=== PATIENT | male | born 1965 | race Caucasian/White ===

== ENCOUNTER → 2018-08-14 16:28 | Outpatient (CLI) | payer OTHER, SELFPAY ==
[2018-08-14 15:30] VITALS: BMI 25.2
[2018-08-14 17:32] LABS: Absolute Lymphocyte Count 1.95 X10^3/ul (0.83-4.51); Absolute Neutrophil Count 3.2 X10^3/uL (2.0-7.7); Basophil# 0.02 X10^3/uL; Basophil% 0.3 % (0-1); Eosinophil# 0.25 X10^3/uL; Eosinophils% 4.2 % (0-5); Hemoglobin 14.6 g/dl (13.0-16.5); Lymphocyte # 1.95 X10^3/ul (4.0); Lymphocyte % 32.8 % (19-41); Mean Corp Hgb Conc 34.8 g/gl (32-36); Mean Corpuscular Hgb 30.9 pg (27.0-32.0); Mean Platelet Vol. 10.2 fl (6.2-12.0); Monocyte# 0.51 X10^3/uL; Monocyte% 8.6 % (0-10); Neutrophil # 3.22 X10^3/uL (2.7-7.7); Neutrophil % 54.1 % (47-70); Platelet Count 170 K/mm3 (150-450); RBC Distribution Width CV 12.2 % (11.6-14.6); RBC Distribution Width SD 39.3 fl (35.1-43.9); Red Blood Count 4.72 M/mm3 (4.6-6.2)
[2018-08-14 17:37] LABS: POSITIVE COUNT NO; POSITIVE DIFFERENTIAL NO; POSITIVE MORPHOLOGY NO
[2018-08-14 17:41] LABS: AST(SGOT) 19 U/L (15-37); Alanine Aminotransfer ALT/SGPT 30 U/L (16-61); Albumin, Serum 3.7 g/dL (3.2-5.0); Alkaline Phosphatase 111 U/L (45-117); Bilirubin, Direct 0.31 mg/dL (0.00-0.30); Cholesterol 103 mg/dL (200); High Density Lipoprotein 33 mg/dL; Protein, Total 6.7 g/dL (6.4-8.2); Triglycerides 130 mg/dL; Very Low Density Lipoprotein 26 mg/dL (5-40)
== END ==
PROVIDERS: Family Provider Family Medicine; PCP Family Medicine; Visit Provider Physician Assistant Medical
DX: I25.10 Atherosclerotic heart disease of native coronary artery without angina pectoris (principal); I10 Essential (primary) hypertension; E78.00 Pure hypercholesterolemia, unspecified; D50.8 Other iron deficiency anemias
CPT/HCPCS: 36415; 80061; 80076; 85025

== ENCOUNTER 2019-02-08 15:40 | Observation (INO) | payer OTHER, SELFPAY ==
[2018-08-14 15:30] VITALS: BMI 25.2
[2019-02-08] VITALS (11 sets, daily range): BP systolic 136–164; BP diastolic 78–96; PULSE 66–92; RESP 14–20; TEMP 36.6–37; O2SAT 97–100; BMI 25.0; BMI 25.1
--- NOTE | 2019-02-08 15:56 | RAD_ITS ---
STUDY: X-RAY CHEST REASON FOR EXAM: Male, 53 years old. CHEST PAIN/HX OF STENTS TECHNIQUE: Portable chest. COMPARISON: 05/13/2014. FINDINGS: The lungs are clear and expanded. There is no demonstrated pleural abnormality. Normal size heart. Coronary stent is identified. Normal mediastinum and thao. Normal visualized pulmonary arteries. Normal visualized aortic arch and descending thoracic aorta. Normal visualized thoracic spine. Normal visualized ribs, clavicles, and shoulders. There is no demonstrated abnormality of the visualized soft tissue structures of the upper abdomen. RAD/Chest 1 View (Portable) IMPRESSION: No acute findings. Electronically Signed: Yaneth Church MD at 16:39 EST Tel , Service support ,
--- NOTE | 2019-02-08 15:57 | EKG12_ITS ---
Test Reason : CP Blood Pressure : / mmHG Vent. Rate : 074 BPM Atrial Rate : 074 BPM P-R Int : 146 ms QRS Dur : 086 ms QT Int : 376 ms P-R-T Axes : 040 026 050 degrees QTc Int : 417 ms Normal sinus rhythm Normal ECG Confirmed by NOEL EVANS, DEEPALI ([id number]), web editor CYNTHIA PACE ([id number]) on 02/10/2019 1:40:08 PM Referred By: Alonzo Alejo Confirmed By:DEEPALI COHEN MD
[2019-02-08 16:18] LABS: Absolute Lymphocyte Count 2.68 X10^3/uL (0.83-4.51); Absolute Neutrophil Count 3.7 X10^3/uL (2.0-7.7); Basophil# 0.05 X10^3/uL; Basophil% 0.7 % (0-1); Eosinophil# 0.15 X10^3/uL; Eosinophils% 2.1 % (0-5); Hematocrit 42.1 % (40-54); Hemoglobin 14.6 g/dL (13.0-16.5); Lymphocyte # 2.68 X10^3/ul (4.0); Lymphocyte % 37.1 % (19-41); Mean Corp Hgb Conc 34.7 g/dL (32-36); Mean Corpuscular Hgb 30.5 pg (27.0-32.0); Mean Corpuscular Volume 88.1 fL (80-94); Mean Platelet Vol. 9.8 fl (6.2-12.0); Monocyte# 0.63 X10^3/uL; Monocyte% 8.7 % (0-10); NRBC Flagged by Analyzer 0 % (0-5); Neutrophil # 3.69 X10^3/uL (2.7-7.7); Platelet Count 195 K/mm3 (150-450); RBC Distribution Width CV 12.1 % (11.6-14.6); RBC Distribution Width SD 38.7 fl (35.1-43.9); Red Blood Count 4.78 M/mm3 (4.6-6.2); White Blood Count 7.2 K/mm3 (4.4-11.0)
[2019-02-08] MEDS: Nitroglycerin (INPATIENT USE) 0.4 MG TAB.SUBL SUBLINGUAL ×3 (16:33→16:50)
[2019-02-08] MEDS: Mag Hydrox/Al Hydrox/Simeth 30 ML UDC PO (16:33)
[2019-02-08 16:41] LABS: D-Dimer Quantitative (DVT/PE) 0.39 FEU/ug/m (0.27-0.49)
[2019-02-08 17:00] LABS: ALB/GLOB Ratio 1.3 RATIO (0.9-2.4); AST(SGOT) 26 U/L (15-37); Alanine Aminotransfer ALT/SGPT 37 U/L (16-61); Albumin, Serum 3.9 g/dL (3.2-5.0); Alkaline Phosphatase 106 U/L (45-117); Anion Gap 7 (5-15); BUN 13 mg/dL (7-18); Calcium,Total 8.8 mg/dL (8.5-10.1); Chloride 106 mmol/L (98-107); Creatinine, Serum 1.18 mg/dL (0.70-1.30); EST Glomerular Filtration Rate 68 mL/min (>60); Est Glom Filt Rate - Afr Amer 82 mL/min (>60); Estimated Creatinine Clearance 79.94 ml/min; Globulin 3.1 g/dL (2.2-4.2); Glucose 158 mg/dL (74-106); Lipase 118 U/L (73-393); Sodium Level 142 mmol/L (136-145)
--- NOTE | 2019-02-08 17:36 | CT_ITS ---
STUDY: CTA CHEST REASON FOR EXAM: Male, 53 years old. DISSECTION,EPIGASTRIC PAIN -- HX:DIABETES,MS WITH CABG AND STENTS X 7,HTN,HLD RADIATION DOSAGE (If Supplied By Facility): CTDIvol = ( 12.39 ) mGy, DLP = ( 464.30 ) mGycm TECHNIQUE: The examination was performed with the intravenous administration of IV 100mL Isovue-370. Post-processing of the angiographic images was performed, with multiplanar reformation and 3D reconstruction. Individualized dose optimization techniques were used for this CT. COMPARISON: None. FINDINGS: The heart and pericardium are normal. The aorta is normal in caliber, with no aneurysm or dissection. There is no mediastinal mass or adenopathy. There is no hilar or axillary adenopathy. There is no evidence of pulmonary embolus. There is no pleural effusion. There is no pulmonary consolidation. Multiple granulomatous calcifications bilaterally. Visualized abdomen is unremarkable. There is no osseous abnormality. CT/CTA Chest W/WO Contrast IMPRESSION: 1. No pulmonary embolus or aortic dissection. 2. Old healed granulomatous disease. Electronically Signed: Yaneth Church MD at 18:25 EST Tel , Service support ,
--- NOTE | 2019-02-08 18:44 | PCM.HP.STD ---
Problem List (1) Chest pain Status: Acute (2) Iron deficiency anemia due to dietary causes Status: Chronic (3) Angina pectoris Status: Chronic (4) Hyperlipidemia Status: Chronic Qualifiers: Hyperlipidemia type: pure hypercholesterolemia Qualified Code(s): E78.00 - Pure hypercholesterolemia, unspecified; E78.0 - Pure hypercholesterolemia (5) Hypertension Status: Chronic Qualifiers: Hypertension type: essential hypertension Qualified Code(s): I10 - Essential (primary) hypertension (6) History of percutaneous transluminal coronary angioplasty Status: Chronic Comment: PTCA/IRIS to prox RCA, mid LAD & Mid D1 with IVUS to LAD & kissing balloon technique at D1 & mid LAD 07/12/09; 07/21/09 - Diag 2 & Ostium restenosed, a small dissection of LAD occurred, IRIS to Lt main to tack down dissection (7) ASHD (arteriosclerotic heart disease) Status: Chronic (8) Other [facility] (current) drug therapy Status: Chronic (9) Diabetes mellitus Status: Chronic (10) Other iron deficiency anemias Status: Chronic (11) Bilateral carotid bruits Status: Chronic History of Present Illness Date of Admission: 02/08/19 Chief Complaint: CHEST PAIN The patient is a 53 year old M with a significant history of CAD status post 7 stents placed on 3 occasions with last stent placed about 9 years ago; hypertension; hyperlipidemia; diabetes mellitus who presented to emergency department with chest pain that started several hours before admission. Associated with symptoms is diaphoresis and shortness of breath. He denied any nausea or vomiting. His pain is episodic and it has been progressively worsening. Is his pain is aggravated with walking and it improves with rest. At the emergency department the plan was to send him home if CT scan of his chest was unremarkable. However while walking to his room after a CT scan of his chest he began to have chest pain and a decision was made to admit patient. His chest pain is located across his entire chest which he described as a pressure. Also he had some burning pain at the left side of his chest. A chest pain radiates to his proximal anterior shoulder. He thinks chest pain is different from his previous episodes where he had MO as in previous episodes of MO, his chest pain radiated to his arms and to his jaws. At the emergency department patient was given GI cocktail which he thinks only made his mouth numbed without any improvement in his chest pain. Nitroglycerin given at the ED helped. Patient had his first heart attack at age 44. His brother had heart attack at 51. And his father had a heart attack at age 52. Past Medical History Past Medical History (Chronic Problems): Chronic Problems (Last Reviewed 02/08/19 @ 20:04 by Alonzo Alejo MD) Iron deficiency anemia due to dietary causes (Chronic) Angina pectoris (Chronic) Hyperlipidemia (Chronic) Hypertension (Chronic) History of percutaneous transluminal coronary angioplasty (Chronic) PTCA/IRIS to prox RCA, mid LAD & Mid D1 with IVUS to LAD & kissing balloon technique at D1 & mid LAD 07/12/09; 07/21/09 - Diag 2 & Ostium restenosed, a small dissection of LAD occurred, IRIS to Lt main to tack down dissection ASHD (arteriosclerotic heart disease) (Chronic) Other penitentiary (current) drug therapy (Chronic) Diabetes mellitus (Chronic) Other iron deficiency anemias (Chronic) Bilateral carotid bruits (Chronic) Medical History: Medical History (Last Reviewed 02/08/19 @ 20:04 by Alonzo Alejo MD) Iron deficiency anemia due to dietary causes (Chronic) D50.8 Old myocardial infarction (Resolved) I25.2 Angina pectoris (Chronic) I20.9 Hyperlipidemia (Chronic) E78.5 Hypertension (Chronic) I10 ASHD (arteriosclerotic heart disease) (Chronic) I25.10 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) Z79.899 Diabetes mellitus (Chronic) E11.9 Other iron deficiency anemias (Chronic) D50.8 Bilateral carotid bruits (Chronic) R09.89 Allergies codeine Adverse Reaction (Severe, Verified 02/08/19 15:43) Unknown penicillin G Adverse Reaction (Severe, Verified 02/08/19 15:43) Unknown Home Medications: Ambulatory Orders Medication Instructions Recorded metformin 1,000 mg tablet 1,000 mg PO BID 01/29/17 atorvastatin 80 mg tablet 80 mg PO QDAY #90 tab 08/14/18 esomeprazole magnesium 40 mg 20 mg PO DAILY cap 08/14/18 capsule,delayed release lisinopril 2.5 mg tablet 2.5 mg PO QDAY #90 tab 08/14/18 prasugrel 10 mg tablet 10 mg PO QDAY #90 tab 08/14/18 Surgical History: Surgical History (Last Reviewed 02/08/19 @ 20:04 by Alonzo Alejo MD) History of percutaneous transluminal coronary angioplasty (Chronic) Z98.61 PTCA/IRIS to prox RCA, mid LAD & Mid D1 with IVUS to LAD & kissing balloon technique at D1 & mid LAD 07/12/09; 07/21/09 - Diag 2 & Ostium restenosed, a small dissection of LAD occurred, IRIS to Lt main to tack down dissection Lives: With Family Smoking Status: Former smoker Tobacco Use: Cigarettes Review of Systems Constitutional: Denies: Chills, Fever, Weight Change HEENT: Denies: Head Aches, Sinus Congestion, Sinus Drainage Cardiovascular: Reports: Chest Pain, Chest Pressure. Denies: Palpitations Respiratory: Reports: Shortness of Breath. Denies: Cough Gastrointestinal: Denies: Abdominal Pain, Nausea, Vomiting Genitourinary: Denies: Dysuria Musculoskeletal: Reports: Shoulder Pain. Denies: Joint Pain, Joint Tenderness Skin: Denies: Rash, Wounds Neurological: Denies: Numbness, Tingling, Focal weakness Psychiatric: Denies: Anxiety, Depression, Homicidal Ideations, Suicidal Ideations Hematologic/ Lymphatic: Denies: Easy Bruising, Easy Bleeding VTE Information - Inpt Only VTE Present on Admission: No VTE Mechan Device Prophylaxis: None VTE Pharm Prophylaxis ordered?: Yes Patient Problems: Active and Suspected Problems (Last Reviewed 02/08/19 @ 20:04 by Alonzo Alejo MD) Chest pain (Acute) - Physical Exam Vitals/I&O's: Vital Signs Temp Pulse Resp BP Pulse Ox 97.8 F 77 16 159/81 H 99 02/08/19 15:45 02/08/19 18:05 02/08/19 18:05 02/08/19 18:05 02/08/19 18:05 Oxygen Delivery Method Room Air Weight: 86.2 kg Body Mass Index (BMI) 25.0 Intake and Output for Last 24 Hours 02/06/19 02/07/19 02/08/19 23:59 23:59 23:59 Intake Total 500 / 500 Balance 500 / 500 General: Alert, Oriented x3, Cooperative HEENT: Atraumatic, PERRLA, EOMI, Normocephalic Neck: Supple, Trachea Midline Lungs: Clear to auscultation, Normal air movement Cardiovascular: Regular rate, Regular Rhythm, Normal S1, Normal S2, No murmurs Abdomen: Bowel Sounds Present, Soft, Non Tender Extremities: No edema, Capillary Refill Less than 3 Seconds Skin: No rashes, No breakdown Musculoskeletal: No Tenderness to Palpation of Joints or Extremities Neurological: Cranial nerves II-XII grossly intact Psych/Mental Status: Normal Affect, Appropriate Laboratory Results 02/08/19 16:00: WBC 7.2, RBC 4.78, Hgb 14.6, Hct 42.1, MCV 88.1, MCH 30.5, MCHC 34.7, RDW Std Deviation 38.7, RDW Coeff of Andrea 12.1, Plt Count 195, MPV 9.8, Immature Gran % (Auto) 0.400, Neut % (Auto) 51.0, Lymph % (Auto) 37.1, [place] % (Auto) 8.7, Eos % (Auto) 2.1, Baso % (Auto) 0.7, Absolute Neuts (auto) 3.7, Absolute Lymphs (auto) 2.68, Nucleated RBC % 0 02/08/19 16:00: Sodium 142, Potassium 4.0, Chloride 106, Carbon Dioxide 29.0, Anion Gap 7, BUN 13, Creatinine 1.18, Estim Creat Clear Calc 79.94, Est GFR (MDRD) Af Amer 82, Est GFR (MDRD) Non-Af 68, BUN/Creatinine Ratio 11.0, Glucose 158 H, Calcium 8.8, Total Bilirubin 1.50 H, AST 26, ALT 37, Alkaline Phosphatase 106, Troponin I < 0.015, Total Protein 7.0, Albumin 3.9, Globulin 3.1, Albumin/Globulin Ratio 1.3, Lipase 118 02/08/19 16:00: D-Dimer Quant (PE/DVT) 0.39 Current Medications Nitroglycerin (Nitrostat) 0.4 mg SUBLINGUAL Q5M PRN PRN Reason: CARDIAC/CHEST PAIN Last Admin: 02/08/19 16:50 Dose: 0.4 mg Documented by: Assessment/Plan All Active Problems (Last Reviewed 02/08/19 @ 20:04 by Alonzo Alejo MD) Chest pain (Acute) Old myocardial infarction (Resolved) The patient is a 53 year old M with a significant history of CAD status post 7 stents placed on 3 occasions with last stent placed about 9 years ago; hypertension; hyperlipidemia; diabetes mellitus who presented to emergency department with chest pain that improves with rest, and nitroglycerin; and exacerbates with walking consistent with angina pectoris. Angina pectoris Place on a monitored bed at pcu CXR independently reviewed confirms no acute cardiopulmonary process. CTA chest showed no pulmonary embolism or aortic dissection. Old healed granulomatous disease. EKG independently reviewed confirms sinus rhythm ASA 81 mg p.o. daily SL NTG 0.4 mg prn as needed for chest pain We will check lipid panel. Statin: On home Lipitor 80 mg daily; continued Anti-P2Y12 Receptor antibody: On Prasugrel; continued Serial cardiac enzymes Stat EKG as needed for chest pain Treadmill Stress test if the cardiac enzymes are negative Diabetes mellitus with hyperglycemia On presentation his blood glucose was elevated. Hold home metformin since it is too early in his hospitalization. Accu-Chek QA CHS correction scale insulin ordered Lisinopril continued Hypertension On presentation his blood pressure was not within goal We will escalate his home lisinopril. Trend blood pressures and adjust blood pressure medication. GERD Prilosec continued DVT prophylaxis Lovenox subcutaneous ordered Code Visit OBSV E&M: [id number] Initial observation care L2
[2019-02-08] MEDS: Aspirin 81 MG TAB.CHEW 324 MG PO (19:10)
--- NOTE | 2019-02-08 19:23 | ED.VISSUMM ---
- ER Visit Summary Date of Service: 02/08/19 Chief Complaint: Chest pain History of Present Illness: The patient is a [address] Ryan Chong III. He reports that he has chest pain that began at 745 this morning. There are 2 different characters to this. He has a constant burning pain in an 8 intermittent pressure that lasts hours. Pain is 8 out of 10 at worst and 5-10 currently. Is worsened by breathing and movement of his left arm. He restates that is relieved by laying back. He denies any associated nausea or vomiting. Reports that he has been diaphoretic and short of breath with this. Patient reports he has a single stent. His last heart catheterization was 3 to 4 years ago. Has not had a stress test since. Physical Examination: Vitals: Stable. Afebrile. General: Well-nourished and well-developed. Head: Normocephalic atraumatic. Neck: Supple, no lymphadenopathy. No JVD. Nontender. Cardiovascular: Regular rate and rhythm. No murmurs. Respiratory: No respiratory distress. Clear to auscultation bilaterally. Abdominal: Soft, nontender, nondistended, normal bowel sounds. No guarding, rebound, or peritoneal signs. Back: Nontender. Extremities: Nontender, no edema. Skin: Normal color, no rash. Neurologic: Alert and oriented ?3. Cranial nerves II through XII are intact. Normal strength and sensation. Psych: Normal affect. Test Results: EKG is sinus at [address] changes. Troponin is negative. D-dimer is negative. LFTs are remarkable total bili 1.5. Lipase is normal. Chem-7 shows a glucose 158. CBC is normal. Clinical Impression(s) from Imaging Studies Chest X-Ray 02/08/19 15:56 IMPRESSION: No acute findings. Electronically Signed: Yaneth Church MD at 16:39 EST Tel , Service support , Chest CTA 02/08/19 17:36 IMPRESSION: 1. No pulmonary embolus or aortic dissection. 2. Old healed granulomatous disease. Electronically Signed: Yaneth Church MD at 18:25 EST Tel , Service support , Emergency Department Course and Treatment: Patient was treated with a GI cocktail with no relief. He was given sublingual nitro with transient relief. He was given aspirin p.o. Patient actually walked over to CT. When he walked over to CT the pressure occurred and resolved with rest. Treatment Plan: This time I do not have an explanation for the patient's chest pain. He was discussed with Dr. Alejo. He will be admitted to the hospital for further evaluation and treatment. Disposition: Admitted in stable condition. Impression: 1. Chest pain, atypical. 2. GILBERTO score of 3. This note was generated with [employer] dictation software. It may contain incorrect words, spelling, and punctuation that were not noted in review of the chart prior to signing
--- NOTE | 2019-02-08 19:42 | EKG12_ITS ---
Test Reason : CP ADMISSION Blood Pressure : / mmHG Vent. Rate : 066 BPM Atrial Rate : 066 BPM P-R Int : 166 ms QRS Dur : 088 ms QT Int : 388 ms P-R-T Axes : 046 011 036 degrees QTc Int : 406 ms Normal sinus rhythm Normal ECG No previous ECGs available Confirmed by TERRY EVANS, BEATRIZ ([id number]), multimedia editor CYNTHIA PACE ([id number]) on 02/14/2019 11:16:58 AM Referred By: Alonzo Alejo Confirmed By:SOHEILA STEWART MD
[2019-02-08] MEDS: Insulin Lispro 100 UNIT/ML INSULN.PEN SC (21:44)
[2019-02-08] MEDS: Lisinopril 5 MG Tablet PO (21:45)
[2019-02-08] MEDS: Atorvastatin Calcium 80 MG Tablet PO (21:46)
[2019-02-08 22:06] LABS: Bedside Glucose 171 mg/dL (70-110)
[2019-02-09] VITALS (9 sets, daily range): BP systolic 136–145; BP diastolic 78–89; PULSE 60–69; RESP 16–18; TEMP 36.3–36.6; O2SAT 96–100
[2019-02-09 02:43] LABS: International Normalized Ratio 1.2; Prothrombin Time (Protime)PT. 15.1 SECONDS (11.7-14.9)
[2019-02-09 03:02] LABS: Cholesterol 84 mg/dL (200); High Density Lipoprotein 37 mg/dL; Triglycerides 70 mg/dL; Very Low Density Lipoprotein 14 mg/dL (5-40)
[2019-02-09 06:46] LABS: Bedside Glucose 153 mg/dL (70-110)
[2019-02-09] MEDS: Pantoprazole Sodium 20 MG Tablet PO (08:24)
[2019-02-09] MEDS: Lisinopril 5 MG Tablet PO (08:24)
--- NOTE | 2019-02-09 10:41 | PCM.PROGNOTE ---
<Kenyetta Hernandez - Last Filed: 02/09/19 11:19> Patient Problems: Active and Suspected Problems (Last Reviewed 02/08/19 @ 20:04 by Alonzo Alejo MD) Chest pain (Acute) Subjective: Patient seen and examined. Continues to have continuous mild burning sensation. Denies shortness of breath, pain radiation or other associated symptoms. Patient does report his symptoms feel different than prior AL/PCI. Patient follows with Dr. Davis and requests that he be updated on admission. - Physical Exam Vitals/I&O's: Vital Signs Temp Pulse Resp BP Pulse Ox 97.4 F L 69 16 145/85 H 96 02/09/19 08:06 02/09/19 08:06 02/09/19 08:06 02/09/19 08:06 02/09/19 08:06 Oxygen Delivery Method Room Air Weight: 190 lb 4.143 oz Body Mass Index (BMI) 25.1 Intake and Output for Last 24 Hours 02/07/19 02/08/19 02/09/19 23:59 23:59 23:59 Intake Total 625 / 625 50 / 50 Balance 625 / 625 50 / 50 General: Alert, Oriented x3, Cooperative HEENT: Atraumatic, PERRLA, EOMI, Normocephalic Neck: Supple, No JVD, Negative Carotid Bruits Lungs: Clear to auscultation, Normal air movement Cardiovascular: Regular rate, Regular Rhythm, Normal S1, Normal S2, No murmurs Abdomen: Bowel Sounds Present, Soft, Non Tender, Non-Distended Extremities: No clubbing, No cyanosis, No edema, Capillary Refill Less than 3 Seconds Skin: No rashes, No breakdown Musculoskeletal: No Tenderness to Palpation of Joints or Extremities Neurological: Cranial nerves II-XII grossly intact, Neuro grossly intact Psych/Mental Status: Normal Affect, Appropriate Laboratory Results 02/08/19 16:00: WBC 7.2, RBC 4.78, Hgb 14.6, Hct 42.1, MCV 88.1, MCH 30.5, MCHC 34.7, RDW Std Deviation 38.7, RDW Coeff of Andrea 12.1, Plt Count 195, MPV 9.8, Immature Gran % (Auto) 0.400, Neut % (Auto) 51.0, Lymph % (Auto) 37.1, [place] % (Auto) 8.7, Eos % (Auto) 2.1, Baso % (Auto) 0.7, Absolute Neuts (auto) 3.7, Absolute Lymphs (auto) 2.68, Nucleated RBC % 0 02/08/19 16:00: Sodium 142, Potassium 4.0, Chloride 106, Carbon Dioxide 29.0, Anion Gap 7, BUN 13, Creatinine 1.18, Estim Creat Clear Calc 79.94, Est GFR (MDRD) Af Amer 82, Est GFR (MDRD) Non-Af 68, BUN/Creatinine Ratio 11.0, Glucose 158 H, Calcium 8.8, Total Bilirubin 1.50 H, AST 26, ALT 37, Alkaline Phosphatase 106, Troponin I < 0.015, Total Protein 7.0, Albumin 3.9, Globulin 3.1, Albumin/Globulin Ratio 1.3, Lipase 118 02/08/19 16:00: D-Dimer Quant (PE/DVT) 0.39 02/08/19 20:26: Troponin I < 0.015 02/08/19 21:39: POC Glucose 171 H 02/08/19 23:17: Troponin I < 0.015 02/09/19 02:24: PT 15.1 H, INR 1.2 02/09/19 02:24: Triglycerides 70, Cholesterol 84, LDL Cholesterol 33, VLDL Cholesterol 14, HDL Cholesterol 37 L 02/09/19 02:24: Troponin I < 0.015 02/09/19 06:38: POC Glucose 153 H Current Medications Acetaminophen (Tylenol) 650 mg PO Q6H PRN PRN PRN Reason: Pain Score 1-10/Temp > 100.7 F Atorvastatin Calcium (Lipitor) 80 mg PO QHS [facility] Last Admin: 02/08/19 21:46 Dose: 80 mg Documented by: Enoxaparin Sodium (Lovenox) 40 mg SC DAILY [facility] Last Admin: 02/09/19 08:24 Dose: Not Given Documented by: Glucagon () 1 mg IM .X1 PRN PRN Reason: Hypoglycemia Sodium Chloride () 250 mls @ 15 mls/hr IV .[id number] PRN PRN Reason: Saline Flush Sodium Chloride () 250 mls @ 15 mls/hr IV .[id number] PRN PRN Reason: Additional IVPB Infusion Dextrose (Dextrose 10%-Water) 250 mls @ 999 mls/hr IV .Q16M PRN; Protocol PRN Reason: HYPOGLYCEMIA Insulin Human Lispro (Humalog Kwikpen (Bkc)) 0 unit SC ACHS [facility]; Protocol Last Admin: 02/09/19 06:48 Dose: Not Given Documented by: Lisinopril (Zestril) 5 mg PO DAILY [facility] Last Admin: 02/09/19 08:24 Dose: 5 mg Documented by: Melatonin (Melatonin) 3 mg PO QHS PRN PRN PRN Reason: INSOMNIA Nitroglycerin (Nitrostat) 0.4 mg SUBLINGUAL Q5M PRN PRN Reason: CARDIAC/CHEST PAIN Ondansetron HCl (Zofran) 4 mg IV Q8H PRN PRN PRN Reason: NAUSEA/VOMITING Pantoprazole Sodium (Protonix) 20 mg PO DAILY [facility] Last Admin: 02/09/19 08:24 Dose: 20 mg Documented by: Prasugrel (Effient) 10 mg PO DAILY [facility] Last Admin: 02/09/19 08:25 Dose: 10 mg Documented by: Sodium Chloride () 10 - 40 ml IV UD PRN PRN Reason: SALINE FLUSH Medical Necessity - Tobacco Use Smoking Status: Former smoker Tobacco Use: Cigarettes Assessment/Plan All Active Problems (Last Reviewed 02/08/19 @ 20:04 by Alonzo Alejo MD) Chest pain (Acute) Old myocardial infarction (Resolved) 1. Chest pain-troponin negative. EKG without acute changes. Plan for stress test in a.m. Patient follows with Dr. Davis. Patient requesting cardiology input, will consult in a.m. Patient reports severe chest pressure and dyspnea with exertion while at work yesterday, concerning for unstable angina. 2. CAD with history of stents x7-patient reports his most recent stent was approximately 9 years ago. He reports his last heart cath was 3 or 4 years ago at [facility]. Continue statin, Prasugrel. Previously on aspirin which was discontinued due to GI bleed. 3. Type 2 diabetes mellitus-metformin on hold. Accucheck ACHS with SSI. 4. Hypertension-stable, continue home lisinopril regimen. 5. GERD-continue home Prilosec regimen. DVT prophylaxis-Lovenox subcu This patient was seen by DANITA Bryant under the supervision of Dr. Sheikh. <Thi Sheikh - Last Filed: 02/09/19 11:57> - Physical Exam Vitals/I&O's: Vital Signs Temp Pulse Resp BP Pulse Ox 97.4 F L 69 16 145/85 H 96 02/09/19 08:06 02/09/19 08:06 02/09/19 08:06 02/09/19 08:06 02/09/19 08:06 Oxygen Delivery Method Room Air Weight: 86.3 kg Body Mass Index (BMI) 25.1 Intake and Output for Last 24 Hours 02/07/19 02/08/19 02/09/19 23:59 23:59 23:59 Intake Total 625 / 625 50 / 50 Balance 625 / 625 50 / 50 Laboratory Results 02/08/19 16:00: WBC 7.2, RBC 4.78, Hgb 14.6, Hct 42.1, MCV 88.1, MCH 30.5, MCHC 34.7, RDW Std Deviation 38.7, RDW Coeff of Andrea 12.1, Plt Count 195, MPV 9.8, Immature Gran % (Auto) 0.400, Neut % (Auto) 51.0, Lymph % (Auto) 37.1, [place] % (Auto) 8.7, Eos % (Auto) 2.1, Baso % (Auto) 0.7, Absolute Neuts (auto) 3.7, Absolute Lymphs (auto) 2.68, Nucleated RBC % 0 02/08/19 16:00: Sodium 142, Potassium 4.0, Chloride 106, Carbon Dioxide 29.0, Anion Gap 7, BUN 13, Creatinine 1.18, Estim Creat Clear Calc 79.94, Est GFR (MDRD) Af Amer 82, Est GFR (MDRD) Non-Af 68, BUN/Creatinine Ratio 11.0, Glucose 158 H, Calcium 8.8, Total Bilirubin 1.50 H, AST 26, ALT 37, Alkaline Phosphatase 106, Troponin I < 0.015, Total Protein 7.0, Albumin 3.9, Globulin 3.1, Albumin/Globulin Ratio 1.3, Lipase 118 02/08/19 16:00: D-Dimer Quant (PE/DVT) 0.39 02/08/19 20:26: Troponin I < 0.015 02/08/19 21:39: POC Glucose 171 H 02/08/19 23:17: Troponin I < 0.015 02/09/19 02:24: PT 15.1 H, INR 1.2 02/09/19 02:24: Triglycerides 70, Cholesterol 84, LDL Cholesterol 33, VLDL Cholesterol 14, HDL Cholesterol 37 L 02/09/19 02:24: Troponin I < 0.015 02/09/19 06:38: POC Glucose 153 H Current Medications Acetaminophen (Tylenol) 650 mg PO Q6H PRN PRN PRN Reason: Pain Score 1-10/Temp > 100.7 F Atorvastatin Calcium (Lipitor) 80 mg PO QHS [facility] Last Admin: 02/08/19 21:46 Dose: 80 mg Documented by: Enoxaparin Sodium (Lovenox) 40 mg SC DAILY [facility] Last Admin: 02/09/19 08:24 Dose: Not Given Documented by: Glucagon () 1 mg IM .X1 PRN PRN Reason: Hypoglycemia Sodium Chloride () 250 mls @ 15 mls/hr IV .[id number] PRN PRN Reason: Saline Flush Sodium Chloride () 250 mls @ 15 mls/hr IV .[id number] PRN PRN Reason: Additional IVPB Infusion Dextrose (Dextrose 10%-Water) 250 mls @ 999 mls/hr IV .Q16M PRN; Protocol PRN Reason: HYPOGLYCEMIA Insulin Human Lispro (Humalog Kwikpen (Bkc)) 0 unit SC ACHS [facility]; Protocol Last Admin: 02/09/19 06:48 Dose: Not Given Documented by: Lisinopril (Zestril) 5 mg PO DAILY [facility] Last Admin: 02/09/19 08:24 Dose: 5 mg Documented by: Melatonin (Melatonin) 3 mg PO QHS PRN PRN PRN Reason: INSOMNIA Nitroglycerin (Nitrostat) 0.4 mg SUBLINGUAL Q5M PRN PRN Reason: CARDIAC/CHEST PAIN Ondansetron HCl (Zofran) 4 mg IV Q8H PRN PRN PRN Reason: NAUSEA/VOMITING Pantoprazole Sodium (Protonix) 20 mg PO DAILY [facility] Last Admin: 02/09/19 08:24 Dose: 20 mg Documented by: Prasugrel (Effient) 10 mg PO DAILY [facility] Last Admin: 02/09/19 08:25 Dose: 10 mg Documented by: Sodium Chloride () 10 - 40 ml IV UD PRN PRN Reason: SALINE FLUSH Assessment/Plan This patient was seen in conjunction with Kenyetta Hernandez NP. I have independently interviewed and examined the patient and reviewed pertinent historical, laboratory, and other data. Please refer to her note for patient's presentation, findings, and recommendations. Patient was seen and examined. He denied any current chest pain. No acute events overnight. He did have some mild burning chest pain this morning. Denied any palpitations or dizziness or palpitations. Troponins are negative. EKG shows no acute ST-T changes. Vitals were reviewed -stable Physical Exam: Gen: Comfortable,not pale, not jaundiced, alert oriented x3 CVS:HS I +II, regular, no murmurs RESP: CTA GI: BS present and normal, nontender, no palpable organs EXT:No edema Labs reviewed: ASSESSMENT: 1. Angina 2. CAD status post stents, 7 3. Type II DM 4. Hypertension 5. GERD Meds reviewed Plan: Stress test in am Continue on atorvastatin, Prasugrel, add aspirin Cardiology consult in a.m. for possible cardiac cath Code Visit OBSV E&M: 38935 Subsequent observation care L2
[2019-02-09 12:31] LABS: Bedside Glucose 162 mg/dL (70-110)
[2019-02-09] MEDS: Aspirin 81 MG TAB.CHEW PO (12:48)
[2019-02-09 17:10] LABS: Bedside Glucose 166 mg/dL (70-110)
[2019-02-09] MEDS: 0.9% Saline Lock 10 ML Syringe IV (18:18)
[2019-02-09] MEDS: Atorvastatin Calcium 80 MG Tablet PO (21:54)
[2019-02-09] MEDS: Insulin Lispro 100 UNIT/ML INSULN.PEN SC (21:54)
[2019-02-09 21:56] LABS: Bedside Glucose 194 mg/dL (70-110)
[2019-02-10] VITALS (15 sets, daily range): BP systolic 108–144; BP diastolic 60–89; PULSE 50–88; RESP 14–18; TEMP 36.2–36.6; O2SAT 94–100
[2019-02-10 06:46] LABS: Bedside Glucose 192 mg/dL (70-110)
--- NOTE | 2019-02-10 07:58 | CON.PCM_ITS ---
Reason for Consult Date of Consultation: 02/10/19 Reason for Consultation: Chest burning History of Present Illness: The patient is a 53 year old M with a past medical history of premature coronary artery disease, diabetes mellitus, previous angioplasty and stenting in [facility] who presented to the emergency room with chest discomfort described as a burning sensation. There was no radiation per se of this discomfort. In the emergency room he was given a GI cocktail as well as sublingual nitroglycerin which he says improved his symptomatology. He was last seen in the office a number of months ago and at that time had been doing well. He says that he has been compliant with his medications. He has had no dizziness or diaphoresis no near syncope or syncope. In the ED his EKG demonstrated normal sinus rhythm with no acute changes. Cardiology was called to see him due to his previous cardiac history. [] Past Medical History Allergies/Adverse Reactions: Allergies codeine Adverse Reaction (Severe, Verified 02/08/19 15:43) Unknown penicillin G Adverse Reaction (Severe, Verified 02/08/19 15:43) Unknown Home Medications: Ambulatory Orders Medication Instructions Recorded metformin 1,000 mg tablet 1,000 mg PO BID 01/29/17 atorvastatin 80 mg tablet 80 mg PO QDAY #90 tab 08/14/18 esomeprazole magnesium 40 mg 20 mg PO DAILY cap 08/14/18 capsule,delayed release lisinopril 2.5 mg tablet 2.5 mg PO QDAY #90 tab 08/14/18 prasugrel 10 mg tablet 10 mg PO QDAY #90 tab 08/14/18 Past Medical History (Chronic Problems): Chronic Problems (Last Reviewed 02/08/19 @ 20:04 by Alonzo Alejo MD) Iron deficiency anemia due to dietary causes (Chronic) Angina pectoris (Chronic) Hyperlipidemia (Chronic) Hypertension (Chronic) History of percutaneous transluminal coronary angioplasty (Chronic) PTCA/IRIS to prox RCA, mid LAD & Mid D1 with IVUS to LAD & kissing balloon technique at D1 & mid LAD 07/12/09; 07/21/09 - Diag 2 & Ostium restenosed, a small dissection of LAD occurred, IRIS to Lt main to tack down dissection ASHD (arteriosclerotic heart disease) (Chronic) 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 Denies: Shortness of Breath, Orthopnea, PND, Peripheral Edema, Palpitations, Lightheadedness, Dizziness, Near Syncope, Syncope Respiratory: Denies: Cough, Sputum Production, Hemoptysis Gastrointestinal: Reports: Heart Burn. Denies: Hematemesis, Hematochezia, Melena Genitourinary: Denies: Dysuria, Hematuria Muscoloskeletal: Denies: Myalgias Skin: Denies: Rash Neurological: Denies: Dizziness Psychiatric: Denies: Anxiety Endocrine: Denies: Heat Intolerance Hematologic/ Lymphatic: Denies: Lymph Node Enlargement Subjectve: Pleasant gentleman in no distress Objective: Vital Signs Temp Pulse Resp BP Pulse Ox 97.6 F L 85 18 130/85 H 100 02/10/19 06:30 02/10/19 07:10 02/10/19 06:30 02/10/19 06:30 02/10/19 06:30 Oxygen Delivery Method Room Air Weight: 190 lb 4.143 oz Body Mass Index (BMI) 25.1 Intake and Output for Last 24 Hours 02/08/19 02/09/19 02/10/19 23:59 23:59 23:59 Intake Total 625 / 625 1380 / 1380 0 / 0 Output Total 5 / 5 Balance 625 / 625 1375 / 1375 0 / 0 General: Awake, Alert, Oriented x 3 HEENT: PERRL, EOMI, Sclera Non Icteric Neck: Supple, Good ROM, No Lymph Node Enlargement Lungs: Clear to auscultation Cardiovascular: Regular Rhythm, Normal S1, Normal S2, No Murmurs, No Rubs, No Gallops Vascular: No Carotid Bruits, Normal Femoral Pulses, Normal Radial Pulses, Normal Dorsalis Pedal Pulse, Normal Posterior Tibial Pulses Abdomen: Bowel Sounds Present, Soft, Non Tender, No HSM, No Organomegaly Extremities: No Cyanosis, No Clubbing, No edema Musculoskeletal: No Erythema Skin: No Rashes Lymphatic: No Lymph Node Enlargement Neurological: No Focal Motor or Sensory Deficit Psych/Mental Status: Appropriate Rhythm: EKG: Normal sinus rhythm with no acute changes ECHO: Stress Test: Cardiac Cath: PCI: CT Surgery: Holter monitor: EPS: PPM: CXR: Chest CT Scan: Assessment/Plan 1. Chest burning-unstable angina * The patient presents with symptomatology suggestive of unstable angina. The discomfort has been getting progressive over the last few weeks associated with fatigue. His EKG demonstrates normal sinus rhythm with no acute changes and his cardiac enzymes are normal. He however does have diabetes mellitus. * Was felt on the basis of the above after discussion with the patient and the relative that they would prefer an invasive approach. The risk benefits alternatives have been explained to them they understand and agreed to proceed. * 2. Hypertension * Suboptimal control continue current medical therapy * Will also add amlodipine 5 mg a day as well as Toprol 50 mg a day 3. Hyperlipidemia * Will continue current risk factor modification and aggressive lipid lowering. * * Thank you for allowing me to participate in the care of your patient. Please don't hesitate to call if any issues arise * Him: Cardiac catheterization today demonstrates a left main coronary artery which was previously stented and patent Left anterior descending artery with previously placed stents patent First diagonal vessel with ostial 70% stenosis Left circumflex artery with no high-grade stenosis Dominant right coronary artery previously stented with patent stents Preserved left ventricular ejection fraction Based on the above angiographic findings the plan will be to continue current medical therapy with aggressive blood pressure treatment Patient can be discharged later today for outpatient follow-up with Dr. Davis.
[2019-02-10] MEDS: Aspirin 81 MG TAB.CHEW PO (08:10)
[2019-02-10] MEDS: Lisinopril 5 MG Tablet PO (08:15)
[2019-02-10] MEDS: 0.9% Saline Lock 10 ML Syringe IV (08:19)
[2019-02-10] MEDS: 0.9% Normal Saline 1,000 ML 15 ML IV (08:26)
--- NOTE | 2019-02-10 09:34 | NURSING ---
report called to lab technologist at this time
--- NOTE | 2019-02-10 10:52 | CL.D_ITS ---
Patient Name: SURENDRA COLE Study Date: 02/10/2019 Performing: Channing Dumas MD Ht: 73 inches 185 cm : 1965 Wt: 189.8 lbs 86 kg Age: 53 Gender: male BSA: 2.1 PROCEDURE(S) PERFORMED DO86-WVD/COR/LV CLINICAL PROFILE AND INDICATIONS Indications: Worsening Angina Heart Failure: None Stress/Imaging Stress/Image Study Performed: No CAD Presentations: Unstable angina. CONCLUSIONS Previously placed stents are noted to be patent. The ostial diagonal vessel has some disease but one will have to go through the previously placed stent to dilate the above. With his elevated blood pr essure and only the above lesion I would recommend aggressive medical therapy for now RECOMMENDATIONS Medical therapy DESCRIPTION OF PROCEDURE The patient arrived to the procedure lab. The risks and benefits of the procedure as well as a full d escription of our services here and current unavailability of surgical backup were fully explained to the patient and/or their significant other prior to the catheterization. The Timeout was completed, verifying the correct patient and procedure. The patient's procedural site was prepped and draped in the usual fashion. Local anesthetic was given subcutaneously to right radial region with Lidocaine 2% . Using a modified Seldinger technique, arterial access was obtained via the right radial artery, a 6 Fr sheath was inserted. Right Coronary Artery selective angiography was then performed in multiple v iews using a 5 Fr. 4.0 [place] catheter. Left Coronary Artery selective angiography was performed in mu ltiple views using a 5 Fr. 4.0 [place] catheter. Left Ventriculography was performed in CHANEL projection using a 5 Fr. Pig[place] catheter. LV to AO pullback pressures were then recorded.The arterial sheath was pulled and a TR Band was applied for hemostasis. 12 cc of air CORONARY ANGIOGRAPHY DOMINANCE: Right Dominant LEFT HEART ASSESSMENT Left Ventricular Ejection Fraction: by LV Gram 60 % Normal LV wall motion Normal Left Ventricular systolic function LEFT MAIN: Previously placed stent is patent LEFT ANTERIOR DESCENDING ARTERY: PROX LAD: Previously placed stent is patent DIAGONAL 1: Ostial - 70 % Stenosis DIAGONAL 2: Proximal - Previously placed stent is patent RIGHT CORONARY ARTERY: Previously placed stent is patent COMPLICATIONS No Complications PROCEDURE MEDICATIONS Versed 1 mg IV Fentanyl 50 mcg IV Fentanyl 25 mcg IV Oxygen: 2 L/min via nasal cannula Heparin diluted in 23cc Heparinized saline. Patient given 10cc IA of this solution. 02/10/2019 10:17 :49 Verapamil 2.5mg, Ntg 100mcgs, 2000 units of Heparin diluted in 23cc Heparinized saline. Patient give n 10cc IA of this solution. 02/10/2019 10:17:49 SUMMARY OF HEMODYNAMIC DATA Time AIR REST ECG 10:00:05 AO 175/94 (126) SA 10:19:40 LV 171/10, 20 10:27:29 LV 168/12, 18 10:27:36 LV 156/17, 21 10:28:11 LVp 159/17, 22 10:28:14 AOp 0/-46 (69) 10:28:19 Signed By Channing Dumas MD On 02/10/2019 10:51:36 Channing Dumas MD
[2019-02-10] MEDS: 0.9% Normal Saline 1,000 ML 100 ML IV (11:02)
[2019-02-10] MEDS: Pantoprazole Sodium 20 MG Tablet PO (11:36)
--- NOTE | 2019-02-10 11:45 | PCM.DC ---
- Discharge Diagnoses Current Active Problems: Current Active and Chronic Problems (Last Reviewed 02/08/19 @ 20:04 by Alonzo Alejo MD) Chest pain (Acute) Reason(s) for Visit for Discharge Instructions: Chest pain You will use the following diet at home:: Calorie/Carbohydrate Controlled (specify 1200, 1400, etc), Cardiac Your food should be the consistency of: Regular Your liquids should be the consistency of: Regular/Thin Discharge Activity: Return to Normal Activity Additional Instructions: Continue to follow a low fat, low salt diet, moderate exercises. Follow-up with Dr. Davis in 2-4 weeks. You should resume your Metformin on evening. Keep yourself hydrated. Check your blood sugars 3x a day. Let your primary care doctor know about your blood sugars are persistently elevated more than 180. Allergies/Adverse Reactions: Allergies codeine Adverse Reaction (Severe, Verified 02/08/19 15:43) Unknown penicillin G Adverse Reaction (Severe, Verified 02/08/19 15:43) Unknown Medications to take at Discharge metformin 1,000 mg tablet 1,000 mg PO BID 01/29/17 atorvastatin 80 mg tablet 80 mg PO QDAY #90 tab 08/14/18 esomeprazole magnesium 40 mg capsule,delayed release 20 mg PO DAILY cap 08/14/18 lisinopril 2.5 mg tablet 2.5 mg PO QDAY #90 tab 08/14/18 prasugrel 10 mg tablet 10 mg PO QDAY #90 tab 08/14/18 Acetaminophen [Tylenol Tablet] 650 mg PO Q6H PRN PRN tablet 02/10/19 Amlodipine [Norvasc] 5 mg PO DAILY #30 tab 02/10/19 Metoprolol(XL)Succ [Toprol Xl (Beta Guera)] 50 mg PO DAILY #30 tab 02/10/19 The following prescriptions were given: Amlodipine [Norvasc] 5 mg PO DAILY #30 tab Transmission Status: Pending to [facility] #30 Metoprolol(XL)Succ [Toprol Xl (Beta Guera)] 50 mg PO DAILY #30 tab Transmission Status: Pending to [facility] #30 Primary Care Physician: Anoop Chong III, MD [Primary Care Provider] - Please follow up with your Primary Care Physician in: within 1-2 weeks Test Results: Test results from this visit will be discussed in further detail at your follow-up appointment, if applicable. Please Follow Up With: Fly Davis MD When: within 2-4 weeks Proposed Discharge Date: 02/10/19
--- NOTE | 2019-02-10 11:53 | DS.PCM_ITS ---
Discharge Date and Diagnosis - Problem List Patient Problems: Active and Suspected Problems (Last Reviewed 02/08/19 @ 20:04 by Alonzo Alejo MD) Chest pain (Acute) Date of Admission: 02/08/19 Date of Discharge: 02/10/19 - Primary Discharge Diagnosis Active and Suspected Problems (Last Reviewed 02/08/19 @ 20:04 by Alonzo Alejo MD) Chest pain (Acute) Angina - Secondary Discharge Diagnosis Chronic Problems (Last Reviewed 02/08/19 @ 20:04 by Alonzo Alejo MD) Iron deficiency anemia due to dietary causes (Chronic) Angina pectoris (Chronic) Hyperlipidemia (Chronic) Hypertension (Chronic) History of percutaneous transluminal coronary angioplasty (Chronic) PTCA/IRIS to prox RCA, mid LAD & Mid D1 with IVUS to LAD & kissing balloon technique at D1 & mid LAD 07/12/09; 07/21/09 - Diag 2 & Ostium restenosed, a small dissection of LAD occurred, IRIS to Lt main to tack down dissection ASHD (arteriosclerotic heart disease) (Chronic) Other intermediate (current) drug therapy (Chronic) Diabetes mellitus (Chronic) Other iron deficiency anemias (Chronic) Bilateral carotid bruits (Chronic) Hospital Course and Treatment Imaging Results: Clinical Impression(s) from Imaging Studies Chest X-Ray 02/08/19 15:56 IMPRESSION: No acute findings. Electronically Signed: Yaneth Church MD at 16:39 EST Tel , Service support , Chest CTA 02/08/19 17:36 IMPRESSION: 1. No pulmonary embolus or aortic dissection. 2. Old healed granulomatous disease. Electronically Signed: Yaneth Church MD at 18:25 EST Tel , Service support , Cardiology Operations: None Procedures: Cardiac catheterization Summary of Care Provided: The patient is a 53 year old M with past medical history of CAD status post stents, hypertension, hyperlipidemia, type II DM who comes in with complains of chest pain, associated with diaphoresis and shortness of breath. Chest pain is worse with walking and improved with rest. Her EKG showed no acute ST-T changes. Troponins x3 were negative. Patient was admitted to the telemetry floor with no events. Cardiology was consulted. Patient had cardiac cath done on 02/10/19, findings showed first diagonal vessel with ostial 70% stenosis, all previously placed stents in LAD, left main, left circumflex, RCA were all patent. Medical management was recommended. He was asked to control his blood glucose better. His HgbA1c was 7.8. The patient had 5 mg p.o. daily was added to his medication list. Patient was asked to take a log of his blood sugars and follow-up with his primary care doctor. Patient Problems: Active and Suspected Problems (Last Reviewed 02/08/19 @ 20:04 by Alonzo Alejo MD) Chest pain (Acute) Subjective: On the day of discharge, patient was seen and examined. Denied any new complaints. - Physical Exam Vitals/I&O's: Vital Signs Temp Pulse Resp BP Pulse Ox 97.1 F L 63 16 116/76 96 02/10/19 10:45 02/10/19 11:45 02/10/19 11:45 02/10/19 11:45 02/10/19 11:45 Oxygen Delivery Method Room Air Weight: 86.3 kg Body Mass Index (BMI) 25.1 Intake and Output for Last 24 Hours 02/08/19 02/09/19 02/10/19 23:59 23:59 23:59 Intake Total 625 / 625 1380 / 1380 279 / 279 Output Total 5 / 5 Balance 625 / 625 1375 / 1375 279 / 279 General: Alert, Oriented x3, Cooperative, No apparent distress HEENT: Atraumatic, PERRLA, EOMI, Normocephalic Oral: Moist Mucosa Neck: Supple Lungs: Clear to auscultation, Normal air movement Cardiovascular: Regular rate, Regular Rhythm, Normal S1, Normal S2, No murmurs Abdomen: Bowel Sounds Present, Soft, Non Tender, Non-Distended, No Hepato- splenomegaly Extremities: No edema Skin: No rashes Musculoskeletal: No Tenderness to Palpation of Joints or Extremities Lymphatic: No Cervical, Supraclavicular, or Inguinal Adenopathy Neurological: Cranial nerves II-XII grossly intact, Neuro grossly intact Psych/Mental Status: Normal Affect, Appropriate Laboratory Results 02/09/19 12:25: POC Glucose 162 H 02/09/19 17:05: POC Glucose 166 H 02/09/19 21:49: POC Glucose 194 H 02/10/19 06:34: POC Glucose 192 H Current Medications Acetaminophen (Tylenol) 650 mg PO Q6H PRN PRN PRN Reason: Pain Score 1-10/Temp > 100.7 F Amlodipine Besylate (Norvasc) 5 mg PO DAILY [facility] Aspirin (Aspirin, Baby) 81 mg PO DAILY@0800 [facility] Last Admin: 02/10/19 08:10 Dose: 81 mg Documented by: Atorvastatin Calcium (Lipitor) 80 mg PO QHS [facility] Last Admin: 02/09/19 21:54 Dose: 80 mg Documented by: Enoxaparin Sodium (Lovenox) 40 mg SC DAILY [facility] Last Admin: 02/10/19 10:57 Dose: Not Given Documented by: Glucagon () 1 mg IM .X1 PRN PRN Reason: Hypoglycemia Sodium Chloride () 250 mls @ 15 mls/hr IV .[id number] PRN PRN Reason: Saline Flush Sodium Chloride () 250 mls @ 15 mls/hr IV .[id number] PRN PRN Reason: Additional IVPB Infusion Dextrose (Dextrose 10%-Water) 250 mls @ 999 mls/hr IV .Q16M PRN; Protocol PRN Reason: HYPOGLYCEMIA Sodium Chloride () 1,000 mls @ 0 mls/hr IV .Q0M [facility] Last Infusion: 02/10/19 11:02 Dose: 0 mls/hr Documented by: Sodium Chloride () 1,000 mls @ 100 mls/hr IV .Q10H [facility] Last Admin: 02/10/19 11:02 Dose: 100 mls/hr Documented by: Insulin Human Lispro (Humalog Kwikpen (Bkc)) 0 unit SC ACHS [facility]; Protocol Last Admin: 02/10/19 11:34 Dose: Not Given Documented by: Lisinopril (Zestril) 2.5 mg PO DAILY [facility] Melatonin (Melatonin) 3 mg PO QHS PRN PRN PRN Reason: INSOMNIA Metoprolol Succinate (Toprol Xl (Beta Guera)) 50 mg PO DAILY [facility] Nitroglycerin (Nitrostat) 0.4 mg SUBLINGUAL Q5M PRN PRN Reason: CARDIAC/CHEST PAIN Ondansetron HCl (Zofran) 4 mg IV Q8H PRN PRN PRN Reason: NAUSEA/VOMITING Pantoprazole Sodium (Protonix) 20 mg PO DAILY [facility] Last Admin: 02/10/19 11:36 Dose: 20 mg Documented by: Prasugrel (Effient) 10 mg PO DAILY [facility] Last Admin: 02/10/19 11:35 Dose: Not Given Documented by: Sodium Chloride () 10 - 40 ml IV UD PRN PRN Reason: SALINE FLUSH Last Admin: 02/10/19 08:19 Dose: 10 ml Documented by: Discharge Diet: Low fat/ Low Cholesterol, 2000 mg Sodium Diet, Carb Control Diet Discharge Activity: Return to Normal Activity Home Medications: Medications to take at Discharge metformin 1,000 mg tablet 1,000 mg PO BID 01/29/17 atorvastatin 80 mg tablet 80 mg PO QDAY #90 tab 08/14/18 esomeprazole magnesium 40 mg capsule,delayed release 20 mg PO DAILY cap 08/14/18 lisinopril 2.5 mg tablet 2.5 mg PO QDAY #90 tab 08/14/18 prasugrel 10 mg tablet 10 mg PO QDAY #90 tab 08/14/18 Acetaminophen [Tylenol Tablet] 650 mg PO Q6H PRN PRN tab 02/10/19 Amlodipine [Norvasc] 5 mg PO DAILY #30 tab 02/10/19 Metoprolol(XL)Succ [Toprol Xl (Beta Guera)] 50 mg PO DAILY #30 tab 02/10/19 Following Prescrptions Were Given to Patient: Amlodipine [Norvasc] 5 mg PO DAILY #30 tab Transmission Status: Received by [email or web address][id number] Metoprolol(XL)Succ [Toprol Xl (Beta Guera)] 50 mg PO DAILY #30 tab Transmission Status: Received by [email or web address][id number] Primary Care Physician: Anoop Chong III, MD [Primary Care Provider] - Please follow up with your Primary Care Physician in: within 1-2 weeks Please Follow Up With: Fly Davis MD When: within 2-4 weeks Disposition: Home Minutes spent on discharge:: 40 Patient Condition:: Stable Medical Necessity - Tobacco Use Smoking Status: Former smoker Tobacco Use: Cigarettes Meaningful Use Info Meaningful Use Diagnoses (Choose all that apply): None applicable Code Visit OBSV E&M: 11058 Observation care discharge
[2019-02-10 12:06] LABS: Bedside Glucose 141 mg/dL (70-110)
[2019-02-10 12:39] LABS: Hemoglobin A1c 7.8 % (4.2-6.3)
== END 2019-02-10 11:42 | disposition home or self-care (01) ==
LOC: ED 16:43 → PCU 19:43
PROVIDERS: Admitting Provider Hospitalist; Emergency Provider Emergency Medicine; Family Provider Family Medicine; PCP Family Medicine; Referring Provider Hospitalist; Visit Provider Internal Medicine
DX: I25.110 Atherosclerotic heart disease of native coronary artery with unstable angina pectoris (principal); R07.89 Other chest pain; D50.9 Iron deficiency anemia, unspecified; E78.5 Hyperlipidemia, unspecified; I10 Essential (primary) hypertension; I25.2 Old myocardial infarction; E11.65 Type 2 diabetes mellitus with hyperglycemia; K21.9 Gastro-esophageal reflux disease without esophagitis; R09.89 Other specified symptoms and signs involving the circulatory and respiratory systems; Z95.5 Presence of coronary angioplasty implant and graft; Z79.899 Other long term (current) drug therapy; Z79.84 Long term (current) use of oral hypoglycemic drugs; Z82.49 Family history of ischemic heart disease and other diseases of the circulatory system; Z87.891 Personal history of nicotine dependence
CPT/HCPCS: 36415; 71045; 71275; 80053; 80061; 82962; 83036; 83690; 84484; 85025; 85379; 85610; 93005; 93458; 96360; 96361; 99152; 99153; 99218; 99285; J7030; Q9967; A4216; C1769; C1894; G0378